=== PATIENT | female | born 2000 | race African-American/Black ===

== ENCOUNTER 2020-12-03 14:47 | Emergency (ER) | payer MEDICAID ==
[~2020-12-03] VITALS: Ht 167.6 cm; Wt 60.1 kg
[2020-12-03] MEDS ORDERED: KETOROLAC 60MG/2ML VIAL IM ONE (16:45)
[2020-12-03] MEDS ORDERED: NAPR-681 MT (17:34)
[2020-12-03 18:28] VITALS: BP 127/74
== END 2020-12-03 18:29 | disposition home or self-care (01) ==
LOC: ER 14:47
DX: M79.671 Pain in right foot (principal)
CPT/HCPCS: 73630; 96372; 99283; J1885; Z7610